=== PATIENT | male | born 1945 | race Hispanic/Latino ===

== ENCOUNTER 2018-07-11 15:08 | Emergency (ER) | payer MEDICARE, BC ==
[2018-07-11 15:42] VITALS: BMI 28.1
[2018-07-11 15:58] VITALS: TEMP 98.7; O2SAT 95
[2018-07-11] MEDS ORDERED: Absorbable Gelatin Sponge Size 100 MM ONE (16:11)
[2018-07-11] MEDS ORDERED: TDAP Vaccine 0.5 mL Syr IM ONE (16:22)
--- NOTE | 2018-07-11 16:24 | ED PDOC ---
Arrival/HPI - General Chief Complaint: Abnormal Skin Integrity Time Seen by Provider: 07/11/18 15:33 Historian: Patient - History of Present Illness Narrative History of Present Illness (Text): 07/11/18 16:20 A 73 year old male, whose past medical history includes CVA(1999), diabetes type 2, hypertension, lung cancer, and cardiac stents x 4, presents to the emergency department complaining of right hand laceration sustained 5 days ago. Per , patient is confused as baseline. States patient was putting on his jacket when he scratched his hand against some metal, resulting in laceration. Mentions she took patient off Plavix 2 days ago, due to laceration continuing to bleed and was worried medication was causing this. Also, explains patient's skin is very thin and seems to always sustain injuring, hence the bruising to right hand. Patient is unable to describe any pain, due to weakness to right-side upper extremity from past CVA. Also, mentions patient's temperature measured to 100.3, and later on had her brother take patient's temperature, to which he told her patient has no fever. Patient's notes patient also experiencing loss of appetite and cough; however denies any nausea, vomiting, chest pain, shortness of breath, dysuria, or any other complaints at this time. No PMD Past Medical History - Provider Review Nursing Documentation Reviewed: Yes - Cardiac Hx Cardiac Disorders: No - Pulmonary Hx Respiratory Disorders: No - Neurological HX Cerebrovascular Accident: Yes (yr 1999) - HEENT Hx HEENT Disorder: No - Renal Hx Renal Disorder: No - Endocrine/Metabolic Hx Diabetes Mellitus Type 2: Yes - Hematological/Oncological Hx Blood Disorders: No - Integumentary Hx Dermatological Disorder: No - Musculoskeletal/Rheumatological Hx Musculoskeletal Disorders: No - Gastrointestinal Hx Gastrointestinal Disorders: No - Genitourinary/Gynecological Hx Genitourinary Disorders: No - Psychiatric Hx Psychophysiologic Disorder: No Hx Substance Use: No - Surgical History Hx Appendectomy: Yes Hx Cardiac Catheterization: Yes (x4 stents) Other/Comment: ear surgery. vasectomy - Anesthesia Hx Anesthesia Reactions: Yes (DEVELOPED BOWEL OBSTRUCTION POST OP VEIN STRIPPING) Hx Malignant Hyperthermia: No - Suicidal Assessment Feels Threatened In Home Enviroment: No Family/Social History - Physician Review Nursing Documentation Reviewed: Yes Family/Social History: No Known Family HX Smoking Status: Former Smoker Hx Alcohol Use: Yes (3X WEEK) Frequency of alcohol use: Few days per week Hx Substance Use: No Allergies/Home Meds Allergies/Adverse Reactions: Allergies No Known Allergies Allergy (Verified 04/30/14 08:11) Home Medications: Home Meds Medication Instructions Recorded Confirmed Cholecalciferol (Vitamin D3) 5,000 iu PO QPM 04/03/14 07/11/18 [Vitamin D3] Clopidogrel [Plavix] 75 mg PO DAILY 04/03/14 07/11/18 Finasteride 5 mg PO DAILY 04/03/14 07/11/18 Lansoprazole 30 mg PO DAILY 04/03/14 07/11/18 Lisinopril 40 mg PO DAILY 04/03/14 07/11/18 Metformin HCl [Metformin] 1,000 mg PO DAILY 04/03/14 07/11/18 Metoprolol Tartrate 50 mg PO BID 04/03/14 07/11/18 Repaglinide 2 mg PO TID 04/03/14 07/11/18 Simvastatin 40 mg PO QPM 04/03/14 07/11/18 Tamsulosin [Flomax] 0.4 mg PO DAILY 04/03/14 07/11/18 Gabapentin [Neurontin] 300 mg PO TID 07/11/18 07/11/18 Review of Systems - Physician Review All systems were reviewed & negative as marked: Yes - Review of Systems Respiratory: Cough. absent: SOB Cardiovascular: absent: Chest Pain Gastrointestinal: Appetite Changes Genitourinary Male: absent: Dysuria Skin: Laceration (right hand) Physical Exam Vital Signs Reviewed: Yes Vital Signs Temp Pulse Resp BP Pulse Ox 07/11/18 15:53 98.7 F 86 18 190/74 H 95 Temperature: Afebrile Blood Pressure: Hypertensive Pulse: Regular Respiratory Rate: Normal Appearance: Positive for: Well-Appearing, Non-Toxic, Comfortable Pain Distress: None Mental Status: Positive for: Alert and Oriented X 3 - Systems Exam Head: Present: Atraumatic, Normocephalic Pupils: Present: PERRL Extroacular Muscles: Present: EOMI Conjunctiva: Present: Normal Mouth: Present: Moist Mucous Membranes Nose (External): Present: Atraumatic Neck: Present: Normal Range of Motion. No: MIDLINE TENDERNESS Respiratory/Chest: Present: Clear to Auscultation, Good Air Exchange. No: Respiratory Distress, Accessory Muscle Use Cardiovascular: Present: Regular Rate and Rhythm, Normal S1, S2. No: Murmurs Abdomen: No: Tenderness, Distention, Peritoneal Signs Back: Present: Normal Inspection. No: Midline Tenderness Upper Extremity: Present: Normal Inspection, Normal ROM, NORMAL PULSES. No: Cyanosis, Edema Lower Extremity: Present: Normal Inspection, NORMAL PULSES, Normal ROM. No: Edema Neurological: Present: GCS=15, CN II-XII Intact, Speech Normal, Normal Sensory Function. No: Motor Func Grossly Intact (4/5 right upper ext; 5/5 LUE, 5/5 lower extremities) Skin: Present: Warm, Dry, Normal Color, Laceration (v-shiped 1cm per side laceration already approximated and healed. No active bleeding.). No: Rashes Psychiatric: Present: Alert, Oriented x 3, Normal Insight, Normal Concentration Medical Decision Making ED Course and Treatment: 07/11/18 16:24 Impression: 73 year old male with laceration to right hand r/o Fracture; Cough r/o PNA Plan: -- Chest X-ray -- Right Hand X-Ray -- Labs -- Boostrix Vaccine -- Gelatin Sponge -- Reassess and disposition Progress Notes: 07/11/18 16:42 Procedure. Right hand cleaned with normal saline. Gel foam placed on laceration and wrapped with nonadhesive gauze and cling. 07/11/18 18:15 Patient CXR ? infiltrate so will treat with Azithromycin. Lungs clear. WBC norm al. Labs reviewed. Xray of hand with no fracture. Will have him follow up with his PMD in 1-2days and recommended to return to the ED if symptoms worsen or any other concern. - RAD Interpretation Radiology Orders: 07/11/18 16:11 CHEST TWO VIEWS (PA/LAT) [RAD] Stat 07/11/18 16:12 HAND RIGHT 3 VIEWS [RAD] Stat - Medication Orders Current Medication Orders: Discontinued Medications Gelatin (Gelfoam Size 100) 1 spg MM ONCE ONE Stop: 07/11/18 16:12 Tetanus/Reduced Diphtheria/Acell Pertussis (Boostrix Vaccine Inj) 0.5 ml IM .ONCE ONE Stop: 07/11/18 16:23 - Scribe Statement The provider has reviewed the documentation as recorded by the Abby Shaikh Provider Scribe Attestation: All medical record entries made by the Scribe were at my direction and personally dictated by me. I have reviewed the chart and agree that the record accurately reflects my personal performance of the history, physical exam, medical decision making, and the department course for this patient. I have also personally directed, reviewed, and agree with the discharge instructions and disposition. Disposition/Present on Arrival - Present on Arrival Any Indicators Present on Arrival: Yes History of DVT/PE: Yes History of Uncontrolled Diabetes: Yes Urinary Catheter: Yes History of Decub. Ulcer: Yes History Surgical Site Infection Following: None - Disposition Have Diagnosis and Disposition been Completed?: Yes Diagnosis: Cough, Laceration Disposition: HOME/ ROUTINE Disposition Time: 18:16 Patient Plan: Discharge Patient Problems: Current Active Problems Problem Status Onset Cough Acute Laceration Acute Condition: IMPROVED Discharge Instructions (ExitCare): Acute Bronchitis Additional Instructions: MIYA CHOUDHARY, thank you for letting us take care of you today. Your provider was Hossein Katz DO and you were treated for Cough, Laceration. The emergency medical care you received today was directed at your acute symptoms. If you were prescribed any medication, please fill it and take as directed. It may take several days for your symptoms to resolve. Return to the Emergency Department if your symptoms worsen, do not improve, or if you have any other problems. Please contact your doctor or call one of the physicians/clinics you have been referred to that are listed on the Patient Visit Information form that is included in your discharge packet. Bring any paperwork you were given at discharge with you along with any medications you are taking to your follow up visit. Our treatment cannot replace ongoing medical care by a primary care provider outside of the emergency department. Thank you for allowing the [facility] team to be part of your care today. If you had an X-Ray or CT scan: A Radiologist will review the ED reading if any change in treatment is needed we will contact you. If you had a blood, urine, or wound culture: It will take several days for the results, if any change in treatment is needed we will contact you. If you had an STI test: It will take 48 hours for the results. Please call after 1 week if you have not heard back. Prescriptions: Azithromycin [Z-Abel] 250 mg PO DAILY #4 tab Referrals: Mario Purcell MD [Staff Provider] - Follow up with primary Forms: Qon[employer] (H[place]er)
[2018-07-11] MEDS ORDERED: Absorbable Gelatin Sponge Size 12-7 ONE (16:40)
[2018-07-11 17:18] LABS: BASO # 0.02 K/mm3 (0.0-2.0); BASO % 0.3 % (0.0-3.0); EOS # 0.2 (0.0-0.7); GRAN # 5.59 (1.4-6.5); GRAN % 75.4 % (50.0-68.0); LYMPH # 0.7 (1.2-3.4); LYMPH % 9.9 % (22.0-35.0); MEAN CELL VOLUME 84.3 fl (80.0-105.0); MEAN CORPUSCULAR HEMOGLOBIN 28.5 pg (25.0-35.0); MEAN CORPUSCULAR HGB CONC 33.7 g/dl (31.0-37.0); MEAN PLATELET VOLUME 9.1 fl (7.0-11.0); MONO # 0.9 (0.1-0.6); MONO % 12.4 % (1.0-6.0); RBC 4.92 10^6/uL (3.5-6.1); RED CELL DISTRIBUTION WIDTH 14.4 % (11.5-14.5); WHITE BLOOD COUNT 7.4 10^3/uL (4.5-11.0)
[2018-07-11 17:24] LABS: INR 1.1; PARTIAL THROMBOPLASTIN TIME 30.1 Seconds (25.1-36.5); PROTHROMBIN TIME 12.6 SECONDS (9.4-12.5)
[2018-07-11 17:25] LABS: BLOOD UREA NITROGEN 19 mg/dL (7-21); CALCIUM 9.4 mg/dL (8.4-10.5); GFR NON-AFRICAN AMERICAN > 60
[2018-07-11 18:21] VITALS: BP 186/77; PULSE 88; RESP 16
--- NOTE | 2018-07-12 11:16 | RAD ---
Date of service: 07/11/2018 HISTORY: Evaluate for pneumonia COMPARISON: 04/03/2014. TECHNIQUE: Chest PA and lateral FINDINGS: LINES AND TUBES: None. LUNG AND PLEURA: The lungs are well inflated and clear. There are multiple surgical clips in the left hilum. No pleural effusion or pneumothorax. HEART AND MEDIASTINUM: The heart is not enlarged. No aortic atherosclerotic calcification present. The hilar and mediastinal contours are within normal limits. SKELETAL STRUCTURES: The bony structures are within normal limits for the patient's age. VISUALIZED UPPER ABDOMEN: Normal. OTHER FINDINGS: None. IMPRESSION: No active pulmonary disease.
--- NOTE | 2018-07-12 13:57 | RAD ---
Date of service: 07/11/2018 PROCEDURE: <HAND RIGHT 3 VIEWS> HISTORY: hand laceration r/o fx COMPARISON: None. FINDINGS: BONES: Bone alignment is normal. There is severe periarticular bone demineralization there is no acute displaced fracture or bone destruction. JOINTS: The joint spaces are preserved. SOFT TISSUES: Normal. OTHER FINDINGS: None. IMPRESSION: No acute displaced fracture or dislocation.
== END 2018-07-11 18:36 | disposition home or self-care (01) ==
LOC: ED 15:08
DX: S61.411A Laceration without foreign body of right hand, initial encounter (principal); W22.09XA Striking against other stationary object, initial encounter; Y92.9 Unspecified place or not applicable; R05 Cough; Z23 Encounter for immunization; I10 Essential (primary) hypertension; E11.9 Type 2 diabetes mellitus without complications; Z86.73 Personal history of transient ischemic attack (TIA), and cerebral infarction without residual deficits; Z85.118 Personal history of other malignant neoplasm of bronchus and lung; Z95.5 Presence of coronary angioplasty implant and graft; Z87.891 Personal history of nicotine dependence